=== PATIENT | male | born 1995 | race Caucasian/White ===

== ENCOUNTER 2018-11-18 19:07 | Emergency (ER) | payer OTHER ==
[~2018-11-18] VITALS: Ht 180.3 cm; Wt 96.2 kg
[2018-11-18 19:16] VITALS: BP 148/67
--- NOTE | 2018-11-18 19:30 | NUR ---
22 YO MALE COMES TO ED FOR C./O RLQ PAIN 5/10 X2 WEEKS. PT DESCRIBES SHARP PAIN. PT C/O CONSTIPATION LAST BM 11/16 AND WAS DIARRHEA. PT F/U @ [facility] 1-2 WKS AGO AND WAS GIVEN RX OF PROTONIX. PT TO F/U WILL PCP, HOWEVER PAIN WORSENED TODAY. PT DENIES FEVER CHILLS. ACTIVE BOWEL SOUNDS, SOFT ROUND NON TENDER. GURNEY LOCKED IN LOWEST POSITION. CALL LIGHT WITHIN REACH. WILL UPDATE ERMD. RX: PROTONIX PMH: DENIES ALLERGIES: DENIES
--- NOTE | 2018-11-18 20:29 | NUR ---
Dr. Chaudhry examining patient.
[2018-11-18 20:47] LABS: BASOPHILS # (AUTO) 0.1 K/uL (0.00-0.22); BASOPHILS % (AUTO) 0.6 % (0.0-2.0); EOSINOPHILS # (AUTO) 0.1 K/uL (0-0.4); HEMATOCRIT 41.9 % (36-52); HEMOGLOBIN 13.5 g/dL (12.0-18.0); LYMPHOCYTES # (AUTO) 2.6 K/uL (2.0-11.5); LYMPHOCYTES % (AUTO) 21.5 % (20.5-51.1); MEAN CORPUSCULAR HEMOGLOBIN 26 pg (27-31); MEAN CORPUSCULAR HGB CONC 32 g/dL (33-37); MEAN CORPUSCULAR VOLUME 81.7 fL (80-94); MONOCYTES # (AUTO) 1.1 K/uL (0.8-1.0); MONOCYTES % (AUTO) 9.2 % (1.7-9.3); NEUTROPHILS # (AUTO) 8.2 K/uL (1.8-7.7); NEUTROPHILS % (AUTO) 67.7 % (42.2-75.2); PLATELET COUNT (AUTO) 313 K/uL (140-450); RED BLOOD CELL COUNT(AUTO) 5.13 MIL/uL (4.20-6.10); RED CELL DISTRIBUTION WIDTH 13.5 % (11.6-13.7); WHITE BLOOD COUNT (AUTO) 12.2 K/uL (4.8-10.8)
[2018-11-18 20:47] LABS: APPEARANCE,URINE CLEAR (CLEAR); BILIRUBIN,URINE 1+ (NEGATIVE); BLOOD, URINE 1+ (NEGATIVE); COLOR,URINE YELLOW (YELLOW); LEUKOCYTE ESTERASE ,URINE NEGATIVE (NEGATIVE); NITRITE, URINE NEGATIVE (NEGATIVE); UGLUCOSE NEGATIVE (NEGATIVE)
[2018-11-18 21:00] LABS: ANION GAP 11.7 (8-16); CARBON DIOXIDE 30.8 mmol/L (21-32); CREATININE 0.9 mg/dL (0.7-1.3); POTASSIUM 3.5 mmol/L (3.5-5.1)
[2018-11-18 21:06] LABS: TOTAL BILIRUBIN 0.4 mg/dL (0.0-1.0)
[2018-11-18 21:14] LABS: RBC,URINE 0-5 /HPF (0-5); WBC,URINE NONE SEEN /HPF (0-5)
[2018-11-18 21:15] LABS: CALCIUM OXALATE CRYSTALS,UR 0-10 /HPF (None Seen)
--- NOTE | 2018-11-18 21:50 | NUR ---
IV removed, catheter intact and site benign. Applied folded 4x4 gauze and tape to stop bleeding.
[2018-11-18 21:51] VITALS: BP 129/72
== END 2018-11-18 21:51 | disposition home or self-care (01) ==
LOC: MED 19:07
DX: R10.31 Right lower quadrant pain (principal); R19.7 Diarrhea, unspecified; K21.9 Gastro-esophageal reflux disease without esophagitis
CPT/HCPCS: 36415; 80053; 81001; 83690; 85025; 99284